=== PATIENT | male | born 1960 | race Caucasian/White ===

== ENCOUNTER 2017-07-24 12:32 | Emergency (ER) | payer MEDICAID, OTHER ==
[~2017-07-24] VITALS: Ht 175.3 cm; Wt 73.0 kg
[2017-07-24 12:53] VITALS: BP 133/96
== END 2017-07-24 16:29 | disposition home or self-care (01) ==
LOC: ER 12:32
DX: R06.02 Shortness of breath (principal); Z53.21 Procedure and treatment not carried out due to patient leaving prior to being seen by health care provider